=== PATIENT | female | born 1960 | race Caucasian/White ===

== ENCOUNTER 2022-09-08 07:14 | Observation (INO) ==
[~2022-09-08 07:14] MED LIST: NS 0.9% 1000 ml BAG 1,000 ML IV ONE
[2022-09-08] MEDS ORDERED: Midazolam 10 mg/10 ml VIAL 1 mg/ml 10 ml VIAL (10 mg) IV SLOW PU ONE (07:59)
[2022-09-08] MEDS ORDERED: fentaNYL 100 mcg/2 ml 50 MCG/ML VIAL IV SLOW PU ONE (07:59)
[2022-09-08] MEDS ORDERED: Midazolam 5 mg/5 ml VIAL 1 mg/ml 5 ml VIAL (5 mg) ONE (08:09)
[2022-09-08] MEDS ORDERED: fentaNYL 100 mcg/2 ml 50 MCG/ML VIAL ONE ×2 (08:09→10:05)
[2022-09-08] MEDS ORDERED: VERAPAMIL 2.5 MG/ML 2 ML VIAL ** 5 mg/2 ml ONE ×2 (08:09→08:47)
[2022-09-08] MEDS ORDERED: Heparin 1,000 UNIT/ML 10 ml (10,000 UNITS) CATHLAB/DIALYSIS ONE ×2 (08:09→09:11)
[2022-09-08] MEDS ORDERED: Heparin 2 UNITS/ML 1000 mls 1,000 ML IV ONE (08:10)
[2022-09-08] MEDS ORDERED: Iohexol 350 (CONTRAST) 100 ML PAK IV ONE (08:10)
[2022-09-08] MEDS ORDERED: Heparin 2 UNITS/ML 1000 mls 2,000 ML IV ONE (08:10)
[2022-09-08] MEDS ORDERED: Lidocaine 1% MPF 5 ML VIAL ONE (08:10)
[2022-09-08] MEDS ORDERED: niCARdipine 0.1MG/ML IVPREMIX 20 MG/200 ML BAG IV ONE (08:10)
[2022-09-08] MEDS ORDERED: nitroGLYCERIN DRIP 25,000 MCG/250 ML BTL ONE (08:10)
[2022-09-08] MEDS ORDERED: Ondansetron 4 mg VIAL 2 MG/ML 2 ml VIAL IV PRN (10:38)
[2022-09-08 12:26] LABS: ABS Basophils 0.1 10^3/ul (0-0.2); ABS Eosinophils 0.1 10^3/ul (0-0.6); ABS Lymphocytes 2.8 10^3/ul (1.0-4.8); ABS Monocytes 0.4 10^3/ul (0-0.8); ABS Neutrophils 4.6 10^3/ul (1.5-7.7); Eosinophil % 1.4 %; Hematocrit 40 % (35-47); Hemoglobin 13.3 g/dL (12.0-16.0); Lymphocyte % 35.6 %; Mean Corpuscular Hemoglobin 29 pg (27-31); Mean Corpuscular Hgb Conc 33 g/dL (31-36); Mean Corpuscular Volume 88 fL (80-97); Mean Platelet Volume 8.9 fL (7.4-10.4); Nucleated Red Blood Cells % 0.1; Platelet Count 235 10^3/uL (150-450); Red Blood Count 4.52 10^6 /uL (3.70-4.87); Red Cell Distribution Width 13 % (10-15); White Blood Count 7.9 10^3/uL (3.5-10.8)
[2022-09-08 12:43] LABS: High Sens Troponin Baseline 22 pg/mL (<15)
[2022-09-08 12:50] LABS: CKMB ng/mL 0.9 ng/mL (0.6-6.3)
[2022-09-08 12:57] LABS: Albumin 4.2 g/dL (3.2-5.2)
[2022-09-08 13:03] LABS: Albumin/Globulin Ratio 1.8 (1-3); Cholesterol 150 mg/dL; Creatine Kinase 51 U/L (10-223); Globulin 2.4 g/dL (2-4); HDL Cholesterol 41.2 mg/dL; LDL Cholesterol 92 mg/dL; Total Protein 6.6 g/dL (6.4-8.9); Triglycerides 83 mg/dL
[2022-09-08 13:04] LABS: ALT 25 U/L (7-52); Alkaline Phosphatase 73 U/L (35-149); Anion Gap 6 mmol/L (2-11); Blood Urea Nitrogen 13 mg/dL (6-24); CO2 Carbon Dioxide 28 mmol/L (22-32); Chloride 105 mmol/L (101-111); Creatinine, Serum 0.58 mg/dL (0.51-0.95); Glucose 100 mg/dL (70-100); Sodium 139 mmol/L (135-145); eGFR CKD-EPI 102.9 (>60)
[2022-09-08 13:17] LABS: Calcium 8.9 mg/dL (8.6-10.3)
[2022-09-08 14:10] LABS: Potassium Redraw 4.2 mmol/L (3.5-5.0)
[2022-09-09 06:08] LABS: ABS Eosinophils 0.2 10^3/ul (0-0.6); ABS Lymphocytes 2.5 10^3/ul (1.0-4.8); ABS Monocytes 0.5 10^3/ul (0-0.8); Eosinophil % 2.6 %; Hematocrit 41 % (35-47); Hemoglobin 13.7 g/dL (12.0-16.0); Mean Corpuscular Hemoglobin 30 pg (27-31); Mean Corpuscular Hgb Conc 34 g/dL (31-36); Mean Corpuscular Volume 89 fL (80-97); Mean Platelet Volume 8.9 fL (7.4-10.4); Platelet Count 232 10^3/uL (150-450); Red Blood Count 4.56 10^6 /uL (3.70-4.87); Red Cell Distribution Width 13 % (10-15); White Blood Count 8.2 10^3/uL (3.5-10.8)
[2022-09-09 06:39] LABS: Calcium 9.4 mg/dL (8.6-10.3); Creatinine, Serum 0.58 mg/dL (0.51-0.95); Magnesium 1.9 mg/dL (1.9-2.7); Potassium 4.2 mmol/L (3.5-5.0); eGFR CKD-EPI 102.9 (>60)
[2022-09-09 10:40] VITALS: BP 127/54
== END 2022-09-09 11:35 | disposition home or self-care (01) ==
LOC: ICU 07:14 → CHICATH 07:14
PROVIDERS: ADMIT Specialist; ATTEND Specialist